=== PATIENT | male | born 1985 | race Caucasian/White ===

== ENCOUNTER 2017-01-21 01:26 | Emergency (ER) | payer MEDICARE, MEDICAID ==
[~2017-01-21] VITALS: Ht 180.3 cm; Wt 96.0 kg
[2017-01-21 01:30] VITALS: Ht 180.3 cm; Wt 96.0 kg
[2017-01-21] MEDS ORDERED: IBUP-1542 PO (02:22)
[2017-01-21] MEDS ORDERED: IBUPROFEN 800 MG TAB PO ONE (02:30)
[2017-01-21] MEDS ORDERED: RISP2TAB93 PO (05:34)
[2017-01-21] MEDS ORDERED: BENZ1TAB7 PO (05:34)
--- NOTE | 2017-01-21 05:48 | ERD ---
ER Documentation Chief Complaint Date/Time DATE: 01/21/17 TIME: 05:45 Chief Complaint was here last nite x meth use, now he has KEARNS mostly [place] HPI Patient is a 31-year-old male with high cholesterol presents with headache and back pain. He says that he has a headache since last night but was worse today. He has not had this headache in the past. He said the back pain that he has had for "quite some time". He has had no treatment as of yet. He has no fevers. He does admit to using methamphetamines a few days ago. ROS All systems reviewed and are negative except as per history of present illness. Medications Home Meds Active Scripts Benztropine Mesylate* (Cogentin*) 1 Mg Tab, 2 MG PO QHS, #14 TAB Prov:MACARIO BARNETT MD 01/21/17 Risperidone* (Risperdal*) 2 Mg Tablet, 2 MG PO QHS, #14 TAB Prov:MACARIO BARNETT MD 01/21/17 Ibuprofen* (Motrin*) 600 Mg Tab, 600 MG PO Q8, #30 TAB Prov:MACARIO BARNETT MD 01/21/17 Allergies Allergies: Coded Allergies: haloperidol (Verified Allergy, Unknown, 01/21/17) Uncoded Allergies: BEES (Allergy, Unknown, 01/19/17) PMhx/Soc History of Surgery: No Anesthesia Reaction: No Hx Neurological Disorder: No Hx Respiratory Disorders: No Hx Cardiac Disorders: No Hx Psychiatric Problems: No Hx Miscellaneous Medical Probl: Yes (Pre Diabetic ) Hx Alcohol Use: No Hx Substance Use: Yes (MDMA, LCD, Marijuana0) Hx Tobacco Use: Yes (1 pack a day) Smoking Status: Current every day smoker FmHx Family History: No diabetes Physical Exam Vitals Vital Signs Date Time Temp Pulse Resp B/P Pulse Ox O2 Delivery O2 Flow Rate FiO2 01/21/17 04:28 97.7 98 18 117/86 100 01/21/17 02:57 97.7 85 17 109/81 100 01/21/17 01:30 97.7 71 17 107/70 100 Physical Exam Const: No acute distress Head: Atraumatic Eyes: Normal Conjunctiva ENT: Normal External Ears, Nose and Mouth. Neck: Full range of motion..~ No meningismus. Resp: Clear to auscultation bilaterally Cardio: Regular rate and rhythm, no murmurs Abd: Soft, non tender, non distended. Normal bowel sounds Skin: No petechiae or rashes Back: No midline or flank tenderness Ext: No cyanosis, or edema Neur: Awake and alert, Cranial nerves II through XII intact, strength is 5 out of 5 in all 4 extremities, no slurred speech Psych: Normal Mood and Affect Results 24 hrs Current Medications Medications (Trade) Dose Ordered Sig/Ana Maria Route PRN Reason Start Time Stop Time Status Last Admin Dose Admin Ibuprofen (Motrin) 800 mg ONCE ONCE PO 01/21/17 02:30 01/21/17 02:31 DC 01/21/17 02:55 Procedures/MDM Smoking Cessation Therapy: Pt. was lectured for greater than 3 minutes on the health risks of continued smoking and the benefits of cessation. Patient is a 31-year-old male with high cholesterol presents with headache and back pain. He has a normal neurologic exam and I do not believe he requires imaging studies or further workup at this time. He was given ibuprofen for pain will be discharged with prescription for ibuprofen. I do not think he requires narcotic medicines and there may be an element of pain seeking behavior as he was seen yesterday for back pain. He does not currently have a primary doctor. When I told him he was going to be discharged he said "I think I want to talk to a psychiatrist because I was thinking of hurting somebody else ". He does not have any true plan and he would not give me the name of somebody that he was going to hurt. He denies suicidal ideation. He had a psychiatric evaluation performed and the psychiatrist does not think the patient requires a 5150 hold. The patient will be given a prescription for Risperdal and Cogentin for 2 weeks per psychiatry recommendation. He can return for any worsening symptoms. I believe outpatient management is appropriate. I do believe there may have been secondary gain by saying he wanted to talk to a psychiatrist. Departure Diagnosis: Primary Impression: Back pain Back pain location: low back pain Chronicity: chronic Back pain laterality : bilateral Sciatica presence: without sciatica Qualified Code: M54.5 - Chronic bilateral low back pain without sciatica Additional Impression: Headache Headache type: unspecified Headache chronicity pattern: acute headache Intractability: not intractable Qualified Code: R51 - Acute nonintractable headache, unspecified headache type Condition: Fair Patient Instructions: Self-Care for Headaches, Back Pain (Acute Or Chronic) Referrals: [facility] YOU HAVE RECEIVED A MEDICAL SCREENING EXAM AND THE RESULTS INDICATE THAT YOU DO NOT HAVE A CONDITION THAT REQUIRES URGENT TREATMENT IN THE EMERGENCY DEPARTMENT. FURTHER EVALUATION AND TREATMENT OF YOUR CONDITION CAN WAIT UNTIL YOU ARE SEEN IN YOUR DOCTORS OFFICE WITHIN THE NEXT 1-2 DAYS. IT IS YOUR RESPONSIBILITY TO MAKE AN APPOINTMENT FOR FOLOW-UP CARE. IF YOU HAVE A PRIMARY DOCTOR --you should call your primary doctor and schedule an appointment IF YOU DO NOT HAVE A PRIMARY DOCTOR YOU CAN CALL OUR PHYSICIAN REFERRAL HOTLINE AT IF YOU CAN NOT AFFORD TO SEE A PHYSICIAN YOU CAN CHOSE FROM THE FOLLOWING [facility] [address] [facility]. [facility] [address] [facility] [facility] [address] [facility] [facility] [address] [facility]. [facility] [address] [facility]. [facility] [address] Additional Instructions: Call your primary care doctor TOMORROW for an appointment during the next 1-2 days.See the doctor sooner or return here if your condition worsens before your appointment time. MACARIO BARNETT MD Jan 21, 2017 05:48
[2017-01-21 06:07] VITALS: BP 119/86; PULSE 87; RESP 14; TEMP 98.7
--- NOTE | 2017-01-21 08:07 | PSY ---
Date/Time of Note Date/Time of Note DATE: 01/21/17 TIME: 07:52 Psychiatric Subjective Eval Subjective Evaluation Patient location: emergency Chief Complaint: was here last nite x meth use, now he has KEARNS mostly [place] Reason for consult: psyche eval History of present illness patient is a 31 yo male homeless with PPH Of bipolar do who came to the ER because he was feeling suicidal. Patient tells me that he is not feeling suicidal currently , " i am a little depressed but not so much", he uses methamphetamine regularly, he denies any current manic or psychotic symptoms, he states that he needed some rest because he is homeless, he denies any anxiety but suffers from insomnia, no current si or hi. Past psychiatric history past suicidal attempt " long time ago " Hospitalization: no Family History denies Medical history Problems Medical Problems: (1) Back pain Status: Acute (2) Back pain Status: Acute (3) Headache Status: Acute Allergies: Coded Allergies: haloperidol (Verified Allergy, Unknown, 01/21/17) Uncoded Allergies: BEES (Allergy, Unknown, 01/19/17) Substance Abuse Substance abuse history: Yes Social History Marital status: single Level of education: hs DPA/Conservatorship: No Occupation/Alf: n Psychiatric Objective Eval Review of Systems: Review of Systems: Not Applicable Physical Examination: Physical Examination: Applicable Sleep: Insomnia Appetite: Decreased Energy: Decreased Interest: Decreased Mental Status Examination: Appearance: Disheveled Eye Contact: Good Psychomotor Activity: Normal Behavior: Friendly Speech: Clear AFFECT: Appropriate Mood: Appropriate/Full Though Process: Linear Thought Content: Normal Suicidal: No Homicidal: No On 72 hour hold: No Orientation: x4 Cognition: Alert Insight: Intact Judgement: Intact Attention Span: Intact Assessment and Plan Assessment/Diagnosis [place] I: mood do nos methamphetamine abuse [place] II: deferred [place] III: chronic pain [place] IV: poor social support homeless [place] V: gaf 70 Recommendation/Plan Medication Management risperdal 2 mg po qhs with cogentin 1 mg po qhs for mood lability for 2 weeks Follow-up/Disposition In my opinion,for this patient, outpatient care is the least restrictive option. Based on available evidence, this condition CAN be safely treated at a lower level of care effective today. Patient is stable without clear and convincing evidence of imminent danger due to mental illness that requires acute inpatient psychiatric care as the least restrictive alternative. Please discharge patient with referral for follow up to a outpatient mental health clinic for psychotherapy and medication. AVTAR GARCIA MD Jan 21, 2017 08:02
== END 2017-01-21 06:11 | disposition home or self-care (01) ==
LOC: E/R 01:26
DX: M54.5 Low back pain (principal); R40.2252 Coma scale, best verbal response, oriented, at arrival to emergency department; F17.210 Nicotine dependence, cigarettes, uncomplicated; R40.2142 Coma scale, eyes open, spontaneous, at arrival to emergency department; R40.2362 Coma scale, best motor response, obeys commands, at arrival to emergency department
CPT/HCPCS: 99284